=== PATIENT | male | born 1965 | race Caucasian/White ===

== ENCOUNTER 2017-10-06 22:33 | Observation (INO) ==
[2017-10-06] MEDS ORDERED: Aspirin 81 MG TAB.CHEW PO ONE (22:46)
--- NOTE | 2017-10-06 22:50 | Emergency Department Note ---
Disposition Clinical Impression: Chest pain Qualifiers: Chest pain type: unspecified Qualified Code(s): R07.9 - Chest pain, unspecified Disposition: Admitted As Inpatient Condition: Good General Adult HPI - General Stated complaint: Cp,pain down L arm Time Seen by Provider: 10/06/17 22:38 Source: patient Limitations: no limitations Nursing Notes Reviewed: Yes Vital Signs Reviewed: Yes - History of Present Illness HPI Narrative: Patient presents for evaluation of chest pain started 2 hours prior to arrival. Patient describes a tightness in his chest. Associated shortness of breath diaphoresis and left arm pain. Patient states nothing has made his symptoms better or worse. Prolonged nature of his chest pain as well but him for evaluation. Patient has had a negative stress test in the past but no cardiac catheterization. Patient's father had an NC in his 60s. His sisters had heart problems in her 50s. Patient did not have any treatment prior to arrival. Aspirin and nitroglycerin will be given. Pain Scale: 7 - Related Data Home Medications Medication Instructions Recorded Confirmed Levothyroxine [Synthroid] 100 mcg PO 0630 09/26/15 10/15/15 Omeprazole [PriLOSEC] 1 cap PO DAILY 09/26/15 10/15/15 Previous Rx's Medication Instructions Recorded Aspirin 81 mg PO DAILY tab.chew 09/27/15 Atorvastatin [Lipitor] 40 mg PO HS #30 tablet 09/27/15 Lisinopril-HCTZ 10-12.5 [Prinzide 1 each PO DAILY #30 tablet 09/27/15 10-12.5] Ondansetron [Zofran] 8 mg PO Q8HR #60 tablet 10/15/15 Allergies Allergy/AdvReac Type Severity Reaction Status Date / Time Oxytetracycline Allergy Swelling Verified 10/06/17 22:37 [From Terramycin] of Lip/Tongue/Throat All systems ED: reviewed and negative except as stated. Review of Systems: As Per HPI Constitutional: Denies: fever, chills, weakness Cardiovascular: Reports: chest pain (Radiation of pain to the left arm), other ( Diaphoresis) Gastrointestinal: Reports: nausea Genitourinary: Denies: dysuria Integumentary: Denies: rash, abrasion, lesions Neurological: Denies: headache, weakness, numbness, paresthesias Psychiatric: Denies: anxiety, depression Endocrine: Denies: fatigue Past Medical History - Past Medical History Medical history: Reports: arthritis, diabetes, GERD, hyperlipidemia, hypertension, thyroid disease, other Surgical history: Reports: other (Colonoscopy) Psychiatric history: Reports: anxiety - Social History Smoking Status: Never smoker Smokeless Tobacco Status: No Alcohol use: Reports: rarely Drug use: Reports: none Physical Exam General: Well appearing, nontoxic, no acute distress Head: Normocephalic Atraumatic Eyes: PERRL, EOMI ENT: Airway patent, no stridor Neck: supple, no meningismus Chest: Lungs clear to auscultation bilateral Cardiac: Regular rate and rhythm, no murmurs, rubs or gallops Abdomen: soft, nontender, nondistended; no guarding, rebound, or tenderness to percussion Musculoskeletal: Calves symmetric, nontender, no palpable cord Skin: No rash, normal skin tone Neuro: Alert and Oriented to person, place, and time; No focal deficit, CN 2-12 symmetric and intact - General Limitations: no limitations General appearance: alert, in no apparent distress Course - Consultations Consultation #1: Discussed with Dr. Paiz. Pt accepted for admission. Vital Signs Temperature 99.0 F 10/06/17 22:38 Pulse Rate 89 10/06/17 22:38 Respiratory Rate 16 10/06/17 22:38 Blood Pressure 136/93 10/06/17 22:38 O2 Sat by Pulse Oximetry 96 10/06/17 22:38 Temperature 97.9 F 10/07/17 03:10 Pulse Rate 72 10/07/17 03:10 Respiratory Rate 14 10/07/17 03:10 Blood Pressure 117/71 10/07/17 03:10 O2 Sat by Pulse Oximetry 93 10/07/17 03:10 Oxygen Delivery Oxygen Delivery Room Air Medical Decision Making - Medical Records Medical records reviewed: Yes I reviewed the patient's medical records. - Lab Data Lab results reviewed: Yes I reviewed the patient's lab results. Result diagrams: 10/06/17 22:46 10/07/17 01:07 Lab Results 10/06/17 10/06/17 10/06/17 Range/Units 22:46 22:46 22:46 WBC 8.4 (4.3-11.1) K/mcL RBC 5.25 (4.19-5.50) M/mcL Hgb 15.6 (12.9-16.9) g/dL Hct 46.2 (37.5-50.1) % MCV 88.0 (83.0-100.0) fL MCH 29.7 (28.0-33.3) pg MCHC 33.8 (31.6-35.5) g/dL RDW 12.5 (11.5-14.5) % Plt Count 229 (140-400) K/mcL MPV 9.2 L (9.4-12.4) fL Immature Gran % 0.1 (0-4) % Seg Neutrophils % 53.5 % Lymphocytes % 36.8 % Monocytes % 7.3 % Eosinophils % 1.8 % Basophils % 0.5 % Neutrophils # 4.5 (1.6-8.9) K/mcL Lymphocytes # 3.1 (0.6-4.6) K/mcL Monocytes # 0.6 (0.0-1.3) K/mcL Eosinophils # 0.2 (0.0-0.6) K/mcL Basophils # 0.0 (0.0-0.2) K/mcL PT 11.4 (9.4-12.1) Seconds INR 1.1 APTT 32.1 (26.0-36.0) Seconds Sodium 141 (136-145) mEq/L Potassium 3.8 (3.5-4.5) mEq/L Chloride 105 (98-109) mEq/L Carbon Dioxide 26 (19-29) mEq/L BUN 20 (8-26) mg/dL Creatinine 1.40 H (0.72-1.25) mg/dL Est GFR ( Amer) > 60 (> 60) Est GFR (Non-Af Amer) 53 L (> 60) BUN/Creatinine Ratio 14 (6-26) Glucose 107 H (70-99) mg/dL Calculated Osmolality 295 (280-300) Calcium 9.7 (8.6-10.8) mg/dL Troponin I (0-0.03) ng/mL 10/06/17 Range/Units 22:46 WBC (4.3-11.1) K/mcL RBC (4.19-5.50) M/mcL Hgb (12.9-16.9) g/dL Hct (37.5-50.1) % MCV (83.0-100.0) fL MCH (28.0-33.3) pg MCHC (31.6-35.5) g/dL RDW (11.5-14.5) % Plt Count (140-400) K/mcL MPV (9.4-12.4) fL Immature Gran % (0-4) % Seg Neutrophils % % Lymphocytes % % Monocytes % % Eosinophils % % Basophils % % Neutrophils # (1.6-8.9) K/mcL Lymphocytes # (0.6-4.6) K/mcL Monocytes # (0.0-1.3) K/mcL Eosinophils # (0.0-0.6) K/mcL Basophils # (0.0-0.2) K/mcL PT (9.4-12.1) Seconds INR APTT (26.0-36.0) Seconds Sodium (136-145) mEq/L Potassium (3.5-4.5) mEq/L Chloride (98-109) mEq/L Carbon Dioxide (19-29) mEq/L BUN (8-26) mg/dL Creatinine (0.72-1.25) mg/dL Est GFR ( Amer) (> 60) Est GFR (Non-Af Amer) (> 60) BUN/Creatinine Ratio (6-26) Glucose (70-99) mg/dL Calculated Osmolality (280-300) Calcium (8.6-10.8) mg/dL Troponin I 0.00 (0-0.03) ng/mL - Radiology Data Radiology results reviewed: Yes I reviewed the patient's radiology results. - EKG Data EKG #1 EKG attestation: Yes I reviewed and interpreted this EKG. EKG results narrative: EKG shows sinus rhythm with a ventricular rate of 83. [place] interval 128. QRS 88. QTC 390. Patient has no significant ST elevations or depressions. Patient 's EKG compared to previous of 11/22/16. Inferior leads with abnormal baseline and unable to compare. Patient has T-wave inversions in 3 today aVF is unreadable. Attestation Statement - Attestation Attestation: I, Brando Dennis MD, personally evaluated this patient and discussed their management with the resident physician. I reviewed the resident's note and agree with the documented findings, medical decision making, and plan of care. 52-year-old male presents to the emergency department with a complaint of left- sided chest pain which started about 2 hours prior to arrival. Describes the pain as a dull aching pain with radiation to the left shoulder and down the left arm. Also radiation to the left jaw. He also complains of shortness of breath associated with the pain. No diaphoresis. No nausea or vomiting. No cough or fever. No history of heart problems. He does have a history of hypertension and hyperlipidemia with borderline diabetes. Patient rated the pain a 7 out of 10. Pain not associated with exertion. On examination patient is a well-developed well-nourished well-appearing male in no acute distress. He is alert and oriented 3. There is no cyanosis or diaphoresis. Chest is nontender to palpation. Breath sounds are clear and equal bilaterally. Heart regular rate and rhythm. Abdomen soft and nontender with normal bowel sounds. No pedal edema noted. No gross focal neurological deficits. EKG shows a normal sinus rhythm with no acute ischemic changes. Chest x-ray negative. Labs reviewed. Troponin normal. The hospitalist, Dr. Paiz, was consulted and accepted admission of the patient.
[2017-10-06 22:57] LABS: Basophils % 0.5 %; Eosinophils # 0.2 K/mcL (0.0-0.6); Eosinophils % 1.8 %; Hematocrit 46.2 % (37.5-50.1); Hemoglobin 15.6 g/dL (12.9-16.9); Immature Granulocytes % 0.1 % (0-4); Lymphocytes # 3.1 K/mcL (0.6-4.6); Lymphocytes % 36.8 %; Mean Corpuscular HGB Conc 33.8 g/dL (31.6-35.5); Mean Corpuscular Hemoglobin 29.7 pg (28.0-33.3); Mean Platelet Volume 9.2 fL (9.4-12.4); Monocytes # 0.6 K/mcL (0.0-1.3); Monocytes % 7.3 %; Neutrophils # 4.5 K/mcL (1.6-8.9); Platelet Count 229 K/mcL (140-400); Red Blood Count 5.25 M/mcL (4.19-5.50); Red Cell Distribution Width 12.5 % (11.5-14.5); Segmented Neutrophils % 53.5 %
[2017-10-06] MEDS: Nitroglycerin 0.4 MG TAB.SUBL SL ONE ×3 (22:57→23:20)
[2017-10-06 23:02] LABS: INR 1.1; Prothrombin Time 11.4 Seconds (9.4-12.1)
[2017-10-06 23:04] LABS: Activated Partial Thrombo Time 32.1 Seconds (26.0-36.0); BUN/Creatinine Ratio 14 (6-26); Blood Urea Nitrogen 20 mg/dL (8-26); Calcium 9.7 mg/dL (8.6-10.8); Carbon Dioxide 26 mEq/L (19-29); Chloride 105 mEq/L (98-109); Glucose 107 mg/dL (70-99); Osmolality,Calculated 295 (280-300); Potassium 3.8 mEq/L (3.5-4.5); Sodium 141 mEq/L (136-145); eGFR For African Americans > 60 (> 60); eGFR For Non-African Americans 53 (> 60)
[2017-10-06] MEDS ORDERED: Nitroglycerin 1 INCH/GM PACKET TP ONE (23:41)
[2017-10-07] MEDS ORDERED: Acetaminophen 325 MG TABLET PO PRN (00:46)
[2017-10-07] MEDS ORDERED: Ondansetron 4 MG/2 ML VIAL IVP PRN (00:46)
[2017-10-07] MEDS ORDERED: *HR* Morphine 2 MG/ML SYRINGE IVP PRN (00:46)
[2017-10-07] MEDS ORDERED: Naloxone 0.4 MG/ML INJ IVP PRN (00:46)
--- NOTE | 2017-10-07 00:53 | Internal Med History&Physical ---
Date of Encounter: 10/07/17 Time of Encounter: 00:30 Assessment and Plan (1) Chest pain Current visit: Yes Status: Acute Atypical chest pain - rule out ACS Continue Aspirin, Lipitor, Nitro paste, IV Morphine PRN Chest x-ray - no acute cardiopulmonary abnormality EKG - sinus rhythm with no acute ST-T changes Troponin - 0.01, cycle troponin BNP < 10 Lipid panel - pending Echocardiogram - pending Stress test - pending Cardiac telemetry, labs in a.m., monitor closely Qualifiers: Chest pain type: unspecified Qualified Code(s): R07.9 - Chest pain, unspecified (2) Hypertension Current visit: Yes Status: Chronic Essential hypertension, controlled, monitor Continue home dose of Lisinopril/HCTZ Qualifiers: Hypertension type: essential hypertension Qualified Code(s): I10 - Essential (primary) hypertension (3) Dyslipidemia Current visit: Yes Status: Chronic Continue home dose of Lipitor (4) DVT prophylaxis Current visit: Yes Status: Acute Heparin subcutaneous Internal Medicine - H&P: HPI Chief complaint: Chest pain Admitted From: Emergency Dept Plans for Post Hospital Care: Home History of present illness: Mr. Brush is a 52 year old male with past medical history hypertension, hypothyroidism, hyperlipidemia and GERD. Patient presents to the ED with complaints of chest pain. Examined in the room. Patient is awake and alert. Not in any distress. Able to provide all history. No family members at bedside. Patient states he developed chest pain around 8 PM this evening. States that this is left-sided chest pain. Describes it as chest tightness and pressure. Radiates to his left arm and neck. Rates it 6/10. Associated with diaphoresis and shortness of breath. Denies palpitations or headache or dizziness. No vomiting or abdominal pain or diarrhea. Denies fever. Patient states he was at home alone when symptoms started. Patient does have family history of coronary artery disease. No other associated symptoms. No other acute complaints. Initial workup in the ED is negative. Chest x-ray is negative. EKG shows normal sinus rhythm. Troponin is within normal limits. Patient will need echocardiogram and stress test. Patient has been explained about his condition and plan of care in detail. He understood and agreed. No unanswered questions. CODE STATUS full code. Past Med Surg Social Fam HX - Past Medical History Medical history: arthritis, diabetes, GERD, hyperlipidemia, hypertension, thyroid disease, other Psychiatric history: anxiety - Past Surgical History Surgical History: other (Colonoscopy) - Social History Smoking Status: Never smoker Smokeless Tobacco Status: No Alcohol use: rarely Drug use: none - Family History Father Adopted: No Hx Family Cardiac Disorders: Yes (Heart Attack) Hx Family Respiratory Disorders: Yes (COPD) Hx Family Cancer: Yes (Bladder) Internal Medicine - H&P: Meds Levothyroxine [Synthroid] 100 mcg PO 0630 09/26/15 [History] Omeprazole [PriLOSEC] 1 cap PO DAILY 09/26/15 [History] Aspirin 81 mg PO DAILY tab.chew 09/27/15 [Rx] Atorvastatin [Lipitor] 40 mg PO HS #30 tablet 09/27/15 [Rx] Lisinopril-HCTZ 10-12.5 [Prinzide 10-12.5] 1 each PO DAILY #30 tablet 09/27/15 [ Rx] Ondansetron [Zofran] 8 mg PO Q8HR #60 tablet 10/15/15 [Rx] 3 Allergy/AdvReac Type Severity Reaction Status Date / Time Oxytetracycline Allergy Swelling Verified 10/06/17 22:37 [From Terramycin] of Lip/Tongue/Throat All Systems PM: A 10-system review of systems was performed and is negative for pertinent findings except as documented above in the HPI. - Constitutional Constitutional: no fatigue, no fever(s), no weakness - EENT Eyes: no blurry vision - Cardiovascular Cardiovascular ROS IM: chest pain, diaphoresis, dyspnea, no dyspnea on exertion , no edema, no lightheadedness, no orthopnea, no palpitations, no syncope - Respiratory Respiratory: dyspnea, no cough, no dyspnea on exertion, no wheezing, no chest congestion - Gastrointestinal Gastrointestinal: no abdominal pain, no bloating, no cramping, no diarrhea, no hematochezia, no loose stools, no melena, no nausea, no vomiting - Genitourinary Genitourinary ROS male: no dysuria - Neurological Neurological ROS: no abnormal gait, no confusion, no convulsions, no dizziness, no loss of vision, no numbness, no tingling - Constitutional Vitals: Temp Pulse Resp BP Pulse Ox 97.7 F 82 20 106/84 96 10/07/17 00:42 10/07/17 00:42 10/07/17 00:51 10/07/17 00:51 10/07/17 00:42 General appearance: Present: cooperative, A&O X 3, pleasant, no acute distress, answers questions appropriately - Head Head exam: Present: atraumatic - Eye Eye exam: Present: EOMI - ENT ENT exam: Present: mucous membranes moist - Respiratory Respiratory exam: Present: CTAB. Absent: accessory muscle use, chest wall tenderness, rales, respiratory distress, rhonchi, wheezes, tachypnea - Cardiovascular Cardiovascular exam: Present: RRR, +S1, +S2 - GI/Abdominal GI/Abdominal exam: Present: soft. Absent: distended, firm, guarding, tenderness - Extremities Exam Extremities exam: Present: radial pulses palpable and symmetrical. Absent: calf tenderness, cyanotic, pedal edema - Neurological Exam Neurological exam: Present: alert, oriented X3, no focal deficits. Absent: facial droop, speech deficit Internal Med - H&P Results - Labs CBC & Chem 7: 10/06/17 22:46 10/07/17 01:07
[2017-10-07] MEDS: 0.9 % Sodium Chloride 1,000 ML IVC SCH ×2 (01:12→20:27)
[2017-10-07 01:20] LABS: INR 1.1
[2017-10-07 01:30] LABS: BUN/Creatinine Ratio 14 (6-26); Blood Urea Nitrogen 18 mg/dL (8-26); Calcium 9.5 mg/dL (8.6-10.8); Carbon Dioxide 27 mEq/L (19-29); Chloride 106 mEq/L (98-109); Chol/HDL Ratio 4.2 (0-4.9); Cholesterol 147 mg/dL (< 200); Glucose 100 mg/dL (70-99); HDL Cholesterol 35 mg/dL (40-59); LDL Cholesterol,Calculated 66 mg/dL (0-99); Osmolality,Calculated 292 (280-300); Potassium 3.5 mEq/L (3.5-4.5); Sodium 140 mEq/L (136-145); Triglycerides 229 mg/dL (< 150); eGFR For African Americans > 60 (> 60); eGFR For Non-African Americans 59 (> 60)
[2017-10-07 02:10] LABS: Thyroid Stimulating Hormone 1.259 mcIU/mL (0.350-4.840)
[2017-10-07] MEDS: *HR* Heparin 5,000 UNIT/ML VIAL SQ SCH ×2 (05:32→17:28)
[2017-10-07] MEDS: Famotidine 20 MG TABLET PO SCH ×2 (10:18→20:14)
[2017-10-07] MEDS: clonazePAM 1 MG TABLET PO SCH ×2 (10:18→20:14)
[2017-10-07] MEDS: Aspirin 81 MG TAB.CHEW PO SCH (10:19)
--- NOTE | 2017-10-07 12:47 | Internal Med Progress Note ---
Date of Encounter: 10/07/17 Time of Encounter: 09:10 - Assessment and plan (1) Chest pain Current Visit: Yes Status: Acute Assessment and plan: Patient reports atypical chest pain. He was admitted to rule out ACS. He was diagnosed with stable angina at that time per his history. He reports left- sided chest pain with radiation to left arm and neck. Onset around 8 PM the night of admission. He describes it as a chest tightness and has associated diaphoresis and shortness of breath. He denies nausea or vomiting. She has history of previous symptoms in the past and per his history, he was diagnosed with angina. The last cardiac workup was in August 2015. Echo showed preserved ejection fraction with mild LVDD and no significant valvular dysfunction. At that time stress test was negative with a gated EF is 71%. Currently troponins are negative. Chest x-ray was negative. Stress test will be performed tomorrow. Echocardiogram was completed today, and has not been read at this time. Continue telemetry Continue aspirin, statin Morphine, nitroglycerin for chest pain Continue to monitor labs and vitals Qualifiers: Chest pain type: unspecified Qualified Code(s): R07.9 - Chest pain, unspecified (2) Hypertension Current Visit: Yes Status: Chronic Assessment and plan: Blood pressure is well controlled. Patient takes Zestoretic at home. Continue. Qualifiers: Hypertension type: essential hypertension Qualified Code(s): I10 - Essential (primary) hypertension (3) Dyslipidemia Current Visit: Yes Status: Chronic Assessment and plan: Continue lovastatin. (4) DVT prophylaxis Current Visit: Yes Status: Acute Assessment and plan: Heparin subcutaneously. Patient is ambulatory. - Time Spent With Patient less than 15 minutes - Subjective Interval history: Patient was seen and assessed at bedside at 9:10 AM. Patient states that he is feeling some better and chest pain is improved. He reports left-sided chest pain describes it as a tightness. He denies any cough or congestion any recent sick contacts. Patient is a nonsmoker. Patient has history of same symptoms in the past, he was diagnosed that time was stable and angina. His last echo and stress test or an August,. He denies headache, blurred vision, dizziness, syncope or near-syncopal. He denies shortness of breath, nausea vomiting or diaphoresis, he denies diarrhea or constipation or abdominal pain. He denies fever or chills. Patient is aware the stress test will not be until tomorrow. All questions have been answered. - Constitutional Vitals: Temp Pulse Resp BP Pulse Ox 98.5 F 74 16 114/76 95 10/07/17 11:44 10/07/17 11:44 10/07/17 11:44 10/07/17 11:44 10/07/17 11:44 General appearance: Present: cooperative, A&O X 3, pleasant, no acute distress, answers questions appropriately - Head Head exam: Present: atraumatic, normal inspection, normocephalic - Eye Eye exam: Present: normal appearance, conjuntiva pink, sclera anicteric - Neck Neck exam general surgery: Present: supple, trachea midline. Absent: lymphadenopathy, tenderness - Respiratory Respiratory exam: Present: CTAB. Absent: accessory muscle use, chest wall tenderness, decreased breath sounds, rales, respiratory distress, rhonchi, wheezes - Cardiovascular Cardiovascular exam: Present: RRR, +S1, +S2. Absent: diastolic murmur, gallop, rubs, systolic murmur - GI/Abdominal GI/Abdominal exam: Present: normal bowel sounds, soft. Absent: distended, hernia, hepatomegaly, tenderness - Extremities Exam Extremities exam: Present: normal capillary refill, normal inspection, warm, radial pulses palpable and symmetrical. Absent: calf tenderness, cyanotic, pedal edema, tenderness - Neurological Exam Neurological exam: Present: alert, oriented X3, no focal deficits. Absent: facial droop, speech deficit - Skin Skin exam: Present: dry, intact, normal color, warm. Absent: rash Internal Medicine: Result - Labs CBC & Chem 7: 10/06/17 22:46 10/07/17 01:07 Labs: BMP 10/07/17 01:07 Sodium 140 Potassium 3.5 Chloride 106 Carbon Dioxide 27 BUN 18 Creatinine 1.27 H Glucose 100 H Calcium 9.5 Cardiac Enzymes 10/07/17 10/07/17 Range/Units 01:07 06:48 Troponin I 0.01 0.01 (0-0.03) ng/mL - ABG Interpretation ABG results: PT/INR, D-dimer PT 12.0 Seconds (9.4-12.1) 10/07/17 01:07 Consult Discharge Plan - Plan Referrals: Christi Prabhakar MD [Primary Care Provider] -
[2017-10-08] MEDS: *HR* Heparin 5,000 UNIT/ML VIAL SQ SCH (06:15)
[2017-10-08] MEDS ORDERED: Regadenoson 0.4 MG/5 ML SYRINGE IVP ONE (06:38)
[2017-10-08] MEDS: Aspirin 81 MG TAB.CHEW PO SCH (10:30)
[2017-10-08] MEDS: clonazePAM 1 MG TABLET PO SCH (10:30)
[2017-10-08] MEDS: Famotidine 20 MG TABLET PO SCH (10:30)
[2017-10-08 11:36] VITALS: BP 134/85
--- NOTE | 2017-10-08 14:39 | Discharge Summary ---
Date of Encounter: 10/08/17 Time of Encounter: 09:30 - Discharge Diagnosis (1) Chest pain Priority: Primary Status: Acute Comments: Patient reports atypical chest pain. He was admitted to rule out ACS. He was diagnosed with stable angina at that time per his history. He reports left- sided chest pain with radiation to left arm and neck. Onset around 8 PM the night of admission. He describes it as a chest tightness and has associated diaphoresis and shortness of breath. He denies nausea or vomiting. She has history of previous symptoms in the past and per his history, he was diagnosed with angina. The last cardiac workup was in August 2015. Echo showed preserved ejection fraction with mild LVDD and no significant valvular dysfunction. At that time stress test was negative with a gated EF is 71%. Currently troponins are negative. Chest x-ray was negative. Stress test negative, gated EF > 70%.. Echocardiogram was completed today, and has not been read at this time. I believe that chest pain is noncardiac, more related to stress and anxiety. Patient reports PTSD and sees mental health providers for anxiety and depression. He states that he has recently started Prozac, did not continue it here because he forgot about it. Patient reports that for 15 years he has had vomiting with stress, either emotional or physical. He reports emesis for 365 days straight. Patient states that he will continue to follow-up with mental health, as well as his primary care provider. Continue aspirin, statin Qualifiers: Chest pain type: unspecified Qualified Code(s): R07.9 - Chest pain, unspecified (2) Hypertension Priority: Secondary Status: Chronic Comments: Blood pressure is well controlled. Patient takes Zestoretic at home. Continue after discharge. Qualifiers: Hypertension type: essential hypertension Qualified Code(s): I10 - Essential (primary) hypertension (3) Dyslipidemia Priority: Secondary Status: Chronic Comments: Chronic. Continue lovastatin. (4) DVT prophylaxis Priority: Secondary Status: Acute Comments: Heparin subcutaneous. Patient has been ambulatory. - Discharge Medications Home Medications: Levothyroxine [Synthroid] 100 mcg PO DAILY 09/26/15 [History] Omeprazole [PriLOSEC] 1 cap PO DAILY 09/26/15 [History] Aspirin 81 mg PO DAILY tab.chew 09/27/15 [Rx] BuPROPion XL (24 HR) [Wellbutrin Xl] 450 mg PO DAILY 12/10/17 [History] FLUoxetine HCl [Prozac] 20 mg PO DAILY 10/07/17 [History] Lisinopril/Hydrochlorothiazide [Zestoretic 10-12.5 mg Tablet] 1 tab PO DAILY 08/14 [History] Lovastatin [Mevacor] 20 mg PO DAILY 10/07/17 [History] Pantoprazole Sodium 40 mg PO BID 10/07/17 [History] Testosterone [Testim] 1 appl TP AD 10/07/17 [History] Venlafaxine XR (24 HR) [Effexor XR] 75 mg PO DAILY 10/07/17 [History] clonazePAM [Klonopin] 1 mg PO BID 10/07/17 [History] Allergies/Adverse Reactions: 3 Allergy/AdvReac Type Severity Reaction Status Date / Time Oxytetracycline Allergy Swelling Verified 10/06/17 22:37 [From Terramycin] of Lip/Tongue/Throat acetaminophen [From Vicodin] AdvReac Gastrointestinal Verified 10/07/17 11:12 Upset escitalopram [From Lexapro] AdvReac Palpitation Verified 10/07/17 11:12 s hydrocodone [From Vicodin] AdvReac Gastrointestinal Verified 10/07/17 11:12 Upset Procedures/tests Complete & Pending: Procedures Performed prior 72 hours Category Date Time Status NM simba perf SPECT multi [NM] Routine Exams 10/08/17 06:00 Taken ECG 12 lead ECG [ECG] AM 0600 Y 10/07/17 06:00 Ordered EV echocardiogram Routine Y 10/07/17 00:51 Completed SP exercise nuclear stress Routine Y 10/07/17 00:51 Completed SP exercise nuclear stress Routine Y 10/08/17 08:11 Completed Date of admission: 10/07/17 00:20 Primary care physician: Christi Prabhakar, Discharging clinician: Kim Ramos Anticipated date of discharge: 10/08/17 - Patient Status Disposition: Home, Self-Care Condition: Good Functional capacity at discharge: independent ambulation Overall status at discharge: patient is back to baseline - Discharge Instructions Follow Up With: Christi Prabhakar MD [Primary Care Provider] - Forms: ED Satisfaction Letter Additional Instructions: Please resume her Prozac. Please resume all other home medications. Please follow-up with your primary care provider in the next 7-10 days for recheck. Return to the emergency department as needed for any other problems or concerns , or if symptoms return or worsen. Please return to normal activities and diet as tolerated - Diet and Activity Activity: increase activity as tolerated Diet: advance to your usual diet Hospital course: Mr. Brush is a 52 year old male with past medical history of dyslipidemia, hypertension, PTSD, anxiety and depression. He reported with chest pain. He has had no chest pain since arrival. He was held over for an extra day due to not having stress tests available on Sunday. All testing was negative. He denies chest pain he is stable and appropriate for discharge. Please see assessment and plan for hospital course. - Time Spent with Patient Total time spent providing and/or coordinating discharge services: Less than 30 minutes - Constitutional Vitals: Temp Pulse Resp BP Pulse Ox 98.2 F 78 17 134/85 96 10/08/17 11:36 10/08/17 11:36 10/08/17 11:36 10/08/17 11:36 10/08/17 11:36 General appearance: Present: cooperative, A&O X 3, pleasant, no acute distress, answers questions appropriately - Head Head exam: Present: atraumatic, normal inspection, normocephalic - Eye Eye exam: Present: normal appearance, conjuntiva pink, sclera anicteric - Neck Neck exam general surgery: Present: supple, trachea midline. Absent: lymphadenopathy, tenderness - Respiratory Respiratory exam: Present: CTAB. Absent: accessory muscle use, chest wall tenderness, decreased breath sounds, rales, respiratory distress, rhonchi, wheezes - Cardiovascular Cardiovascular exam: Present: RRR, +S1, +S2. Absent: diastolic murmur, gallop, rubs, systolic murmur - GI/Abdominal GI/Abdominal exam: Present: normal bowel sounds, soft, no peritoneal signs. Absent: distended, hepatomegaly, tenderness - Extremities Exam Extremities exam: Present: normal capillary refill, normal inspection, warm, radial pulses palpable and symmetrical. Absent: calf tenderness, cyanotic, pedal edema, tenderness - Neurological Exam Neurological exam: Present: alert, oriented X3, no focal deficits. Absent: facial droop, speech deficit - Skin Skin exam: Present: dry, intact, normal color, warm. Absent: rash
--- NOTE | 2017-10-08 15:06 | Electrocardiograph Report ---
[address] [place], [place] [address] Test Date: 2017-10-06 Pat Name: Cheko Brush Department: 104 Room: 3B Gender: M [employer]ator: LYNDON : 1965 Requested By: Jesse Ty Order Number: [id number] Reading MD: Sha Wang Measurements Intervals [place] Rate: 83 P: -1 RI: 128 QRS: 5 QRSD: 88 T: 7 QT: 350 QTc: 390 Interpretive Statements SINUS RHYTHM Electronically Signed On 10-08-2017 15:04:32 EST by Sha Wang
== END 2017-10-08 16:03 | disposition home or self-care (01) ==
LOC: 3BNU 22:33 → EMEROO 22:33 → 3BNU 10-07 00:35
PROVIDERS: ADMIT Family Medicine; ATTEND Registered Nurse

== ENCOUNTER 2019-07-07 20:43 | Observation (INO) ==
--- NOTE | 2019-07-07 20:51 | Emergency Department Note ---
Disposition Clinical Impression: Chest pain Qualifiers: Chest pain type: unspecified Qualified Code(s): R07.9 - Chest pain, unspecified Disposition: Admitted As Inpatient Condition: Fair Referrals: Keshawn Vance MD [Primary Care Provider] - Time of Disposition: 22:25 General Adult HPI - General Stated complaint: CP Time Seen by Provider: 07/07/19 20:49 Nursing Notes Reviewed: Yes Vital Signs Reviewed: Yes - History of Present Illness HPI Narrative: Patient to the ED complaint chest pain. Patient describes a sharp left-sided chest pain. It radiates down his left arm and left side of his jaw. Woke him up from sleep around 7 PM. No prior cardiac history. He has had a prior stress test that was negative. He does have hypertension and "prediabetes". Family history of coronary disease. Patient states he took a Klonopin prior to arrival but it did not help much. - Related Data Home Medications Medication Instructions Recorded Confirmed Levothyroxine Sodium 125 mcg PO DAILY 12/25/18 12/25/18 Lisinopril/Hydrochlorothiazide 1 tab PO DAILY 12/25/18 12/25/18 [Zestoretic 10-12.5 mg Tablet] Pantoprazole Sodium 40 mg PO BID 12/25/18 12/25/18 Sertraline [Zoloft] 50 mg PO DAILY 12/25/18 12/25/18 clonazePAM [Clonazepam] 1 mg PO BID PRN 12/25/18 12/25/18 Allergies Allergy/AdvReac Type Severity Reaction Status Date / Time oxytetracycline Allergy Swelling Verified 12/25/18 10:34 [From Terramycin] of Lip/Tongue/Throat escitalopram [From Lexapro] AdvReac Palpitation Verified 12/25/18 10:34 s hydrocodone [From Vicodin] AdvReac Gastrointestinal Verified 12/25/18 10:34 Upset All systems ED: reviewed and negative except as stated. Constitutional: Denies: fever Cardiovascular: Reports: chest pain. Denies: palpitations Respiratory: Denies: dyspnea Gastrointestinal: Reports: nausea. Denies: vomiting, diarrhea Past Medical History - Past Medical History Attestation: Yes The following information was validated with the patient. Source: patient Medical history: Reports: arthritis, diabetes, GERD, hyperlipidemia, hypertension, migraine, thyroid disease, other Surgical history: Reports: other Psychiatric history: Reports: anxiety, depression - Social History Smoking Status: Never smoker Smokeless Tobacco Status: No Alcohol use: Reports: rarely Drug use: Reports: none Physical Exam Patient awake and alert sitting up in bed in no acute distress. - General Limitations: no limitations - Head Head exam: atraumatic, normocephalic - Eye Eye exam: Present: normal appearance - Neck Neck exam: Present: normal inspection - Chest Chest inspection: Present: normal inspection, symmetric chest wall rise - Respiratory Respiratory exam: Present: normal lung sounds bilaterally. Absent: respiratory distress - Cardiovascular Cardiovascular exam: Present: regular rate, normal rhythm - Abdominal Exam Abdominal exam: Present: soft, Non-Tender - Expanded Neurological Exam Patient oriented to: Present: person, place, time - Psychiatric Psychiatric exam: Present: normal affect - Skin Skin exam: Present: warm, dry Course - Reevaluation(s) Reevaluation #1: Patient is reevaluated and he feels much better at this time. We did discuss admission versus discharge after repeat troponin. Patient mentions now that he had an episode a couple weeks ago he was riding his bike heart at the [employer] experience some left-sided chest pain down his left arm as well. It is been a year since his last stress test. Believe this time the patient should be admitted for further cardiac workup. Patient hospitalist. Blood pressure is improved to 122/80 on reevaluation. Time: 22:24 - Consultations Consultation #1: Dr Sanchez accepts. Time: 22:41 Vital Signs Temperature 97.9 F 07/07/19 20:48 Pulse Rate 82 07/07/19 20:48 Respiratory Rate 20 07/07/19 20:48 Blood Pressure 172/121 07/07/19 20:48 O2 Sat by Pulse Oximetry 99 07/07/19 20:48 Temperature 97.9 F 07/07/19 20:48 Pulse Rate 75 07/07/19 21:53 Respiratory Rate 16 07/07/19 21:53 Blood Pressure 140/92 07/07/19 21:53 O2 Sat by Pulse Oximetry 96 07/07/19 21:53 Oxygen Delivery Oxygen Delivery Room Air Medical Decision Making - Lab Data Lab results reviewed: Yes I reviewed the patient's lab results. Result diagrams: 07/07/19 20:54 07/07/19 20:54 Lab Results 07/07/19 07/07/19 Range/Units 20:54 20:54 WBC 8.6 (4.3-11.1) K/mcL RBC 5.21 (4.19-5.50) M/mcL Hgb 15.7 (12.9-16.9) g/dL Hct 47.4 (37.5-50.1) % MCV 91.0 (83.0-100.0) fL MCH 30.1 (28.0-33.3) pg MCHC 33.1 (31.6-35.5) g/dL RDW 12.5 (11.5-14.5) % Plt Count 218 (140-400) K/mcL MPV 9.1 L (9.4-12.4) fL Immature Gran % 0.2 (0-4) % Seg Neutrophils % 45.1 % Lymphocytes % 40.6 % Monocytes % 8.6 % Eosinophils % 4.8 % Basophils % 0.7 % Neutrophils # 3.9 (1.6-8.9) K/mcL Lymphocytes # 3.5 (0.6-4.6) K/mcL Monocytes # 0.7 (0.0-1.3) K/mcL Eosinophils # 0.4 (0.0-0.6) K/mcL Basophils # 0.1 (0.0-0.2) K/mcL Sodium 140 (136-145) mEq/L Potassium 3.6 (3.5-5.1) mEq/L Chloride 102 (98-107) mEq/L Carbon Dioxide 28 (23-29) mEq/L BUN 16 (6-20) mg/dL Creatinine 1.29 (0.70-1.30) mg/dL Est GFR ( Amer) > 60 (> 60) Est GFR (Non-Af Amer) 58 L (> 60) BUN/Creatinine Ratio 12 (6-26) Glucose 124 H (70-105) mg/dL Calculated Osmolality 293 (280-300) Calcium 9.6 (8.6-10.3) mg/dL Troponin I < 0.03 (< 0.04) ng/mL - Radiology Data Radiology results reviewed: Yes I reviewed the patient's radiology results. - EKG Data EKG #1 EKG attestation: Yes I reviewed and interpreted this EKG. EKG results narrative: EKG is normal sinus rhythm at 84. Nonspecific ST changes in inferior leads are unchanged from prior EKG. Normal axis. Normal QRS. Critical Care Time Critical Care Time: No Heart Score - Score History: Moderately Suspicious EKG: Non Specific repolarisation Disturbance Age: 45-65 Risk Factors: Equal/Greater than 3 risk factor or history of atherosclerotic disease Troponin: Less than normal limit HEART Score Total: 5
[2019-07-07] MEDS ORDERED: Aspirin 81 MG TAB.CHEW PO ONE (20:55)
[2019-07-07] MEDS ORDERED: *HR* LORazepam 2 MG/ML VIAL IVP ONE (21:02)
[2019-07-07 21:12] LABS: Basophils # 0.1 K/mcL (0.0-0.2); Basophils % 0.7 %; Eosinophils # 0.4 K/mcL (0.0-0.6); Eosinophils % 4.8 %; Hematocrit 47.4 % (37.5-50.1); Hemoglobin 15.7 g/dL (12.9-16.9); Immature Granulocytes % 0.2 % (0-4); Lymphocytes # 3.5 K/mcL (0.6-4.6); Lymphocytes % 40.6 %; Mean Corpuscular HGB Conc 33.1 g/dL (31.6-35.5); Mean Corpuscular Hemoglobin 30.1 pg (28.0-33.3); Mean Platelet Volume 9.1 fL (9.4-12.4); Monocytes # 0.7 K/mcL (0.0-1.3); Monocytes % 8.6 %; Neutrophils # 3.9 K/mcL (1.6-8.9); Platelet Count 218 K/mcL (140-400); Red Blood Count 5.21 M/mcL (4.19-5.50); Red Cell Distribution Width 12.5 % (11.5-14.5); Segmented Neutrophils % 45.1 %; White Blood Count 8.6 K/mcL (4.3-11.1)
[2019-07-07] MEDS ORDERED: *HR* Promethazine 25 MG/ML VIAL IVP ONE (21:25)
[2019-07-07 21:39] LABS: BUN/Creatinine Ratio 12 (6-26); Blood Urea Nitrogen 16 mg/dL (6-20); Calcium 9.6 mg/dL (8.6-10.3); Carbon Dioxide 28 mEq/L (23-29); Chloride 102 mEq/L (98-107); Glucose 124 mg/dL (70-105); Osmolality,Calculated 293 (280-300); Potassium 3.6 mEq/L (3.5-5.1); Sodium 140 mEq/L (136-145); Troponin I < 0.03 ng/mL (< 0.04); eGFR For African Americans > 60 (> 60); eGFR For Non-African Americans 58 (> 60)
[2019-07-08] MEDS ORDERED: Naloxone 0.4 MG/ML INJ IVP PRN (06:21)
--- NOTE | 2019-07-08 06:30 | Internal Med History&Physical ---
Date of Encounter: 07/08/19 Time of Encounter: 06:16 Internal Medicine - H&P: HPI Chief complaint: Chest pain Admitted From: Emergency Dept Plans for Post Hospital Care: Home History of present illness: Mr. Littlejohn is a 54 year old male Patient presented to emergency department with chest pain that occurred just after taking a nap. He says he was lying down when he woke up he had central chest pain with radiation to his left arm and jaw. He thought maybe it was an anxiety attack, so he took one of his Klonopin medications. This did not help his pain. He has had similar events like this in the past, but usually resolves on its own. Because the pain was not improving on its own, he decided to come to the emergency department for further evaluation. His drove him to the ER. In emergency department patient's initial vital signs demonstrated an elevated blood pressure of 172/121, otherwise within normal limits. CBC unremarkable BMP unremarkable, slightly elevated glucose of 124. Initial troponin undetectable Chest x-ray was negative EKG: Sinus rhythm, rate 84, no ischemic changes compared to previous. In the emergency department patient received a 324 mg dose of aspirin, and 1 mg of Ativan. He also received 12.5 mg of Phenergan. He is admitted to the hospital for further management. Upon my evaluation, patient is resting comfortably in hospital bed in no acute distress. He denies chest pain, as it resolved upon arrival to the ER. He denies abdominal pain, diarrhea and constipation. He had some nausea but this had resolved after the Phenergan given in the emergency department. He has a family history of heart disease, stating that his father had a fatal heart attack at 45,, and his mother also had heart disease. Both of his parents smoked however, and the patient does not smoke, drink or do other drugs. He is prediabetic but does not take any medicines for his diabetes. He does have a history of hypertension and takes lisinopril/hydrochlorothiazide. He is a full code. Past Med Surg Social Fam HX - Past Medical History Medical history: arthritis, diabetes, GERD, hyperlipidemia, hypertension, migraine, thyroid disease, other Additional medical history: depression with anxiety. low back pain. hypogonadism Psychiatric history: anxiety, depression - Past Surgical History Surgical History: other Additional surgical history: R knee growth removed. colonoscopy - Social History Smoking Status: Never smoker Smokeless Tobacco Status: No Alcohol use: rarely Drug use: none - Family History Father Adopted: No Living Status: Hx Family Cardiac Disorders: Yes (Heart Attack) Hx Family Respiratory Disorders: Yes (COPD) Hx Family Cancer: Yes (Bladder) Internal Medicine - H&P: Meds Levothyroxine Sodium 125 mcg PO DAILY 12/25/18 [History] Lisinopril/Hydrochlorothiazide [Zestoretic 10-12.5 mg Tablet] 1 tab PO DAILY 12/25/18 [History] Pantoprazole Sodium 40 mg PO BID 12/25/18 [History] clonazePAM [Clonazepam] 1 mg PO BID PRN 12/25/18 [History] Buspirone HCl 150 mg PO DAILY 07/08/19 [History] Allergy/AdvReac Type Severity Reaction Status Date / Time oxytetracycline Allergy Swelling Verified 12/25/18 10:34 [From Terramycin] of Lip/Tongue/Throat escitalopram [From Lexapro] AdvReac Palpitation Verified 12/25/18 10:34 s hydrocodone [From Vicodin] AdvReac Gastrointestinal Verified 12/25/18 10:34 Upset All Systems PM: A 10-system review of systems was performed and is negative for pertinent findings except as documented above in the HPI. - Constitutional Vitals: Temp Pulse Resp BP Pulse Ox 97.9 F 77 16 100/69 93 07/08/19 03:57 07/08/19 03:57 07/08/19 03:57 07/08/19 03:57 07/08/19 03:57 General appearance: Present: cooperative, A&O X 3, pleasant, no acute distress, answers questions appropriately Exam: - - Head Head exam: Present: normal inspection - Eye Eye exam: Present: EOMI, normal appearance - Neck Neck exam general surgery: Present: full ROM, supple. Absent: tenderness - Respiratory Respiratory exam: Present: CTAB. Absent: rales, respiratory distress, rhonchi, wheezes - Cardiovascular Cardiovascular exam: Present: RRR. Absent: diastolic murmur, systolic murmur - GI/Abdominal GI/Abdominal exam: Present: normal bowel sounds, soft. Absent: tenderness - Extremities Exam Extremities exam: Present: warm, radial pulses palpable and symmetrical. Absent: calf tenderness, pedal edema, tenderness - Neurological Exam Neurological exam: Present: no focal deficits, strengths equal and symetr throughout. Absent: motor sensory deficit, facial droop, speech deficit - Skin Skin exam: Present: dry, normal color, warm Internal Med - H&P Results - Labs CBC & Chem 7: 07/07/19 20:54 07/07/19 20:54 Labs: Short CBC 07/07/19 Range/Units 20:54 WBC 8.6 (4.3-11.1) K/mcL Hgb 15.7 (12.9-16.9) g/dL Hct 47.4 (37.5-50.1) % Plt Count 218 (140-400) K/mcL Neutrophils # 3.9 (1.6-8.9) K/mcL BMP 07/07/19 20:54 Sodium 140 Potassium 3.6 Chloride 102 Carbon Dioxide 28 BUN 16 Creatinine 1.29 Glucose 124 H Calcium 9.6 Cardiac Enzymes 07/07/19 Range/Units 20:54 Troponin I < 0.03 (< 0.04) ng/mL - Impressions ITS Impressions Chest X-Ray 07/07/19 20:55 IMPRESSION: Negative portable study. D/ / Cely Shelby Cha, MD / Cely Shelby Cha, MD Interpreting Provider: Cely Shelby Cha, MD - Assessment and Plan (1) Chest pain Current Visit: Yes Status: Acute Assessment and plan: Chest pain now resolved. Patient had previous stress test and echocardiogram performed in 2017. Echocardiogram showed left ventricular ejection fraction of 60% with mild left ventricular diastolic dysfunction. Is also possible PFO on Doppler evaluation. Continue to trend troponin Cardiac telemetry Echocardiogram in the morning Consider stress test Qualifiers: Chest pain type: unspecified Qualified Code(s): R07.9 - Chest pain, unspecified (2) Hypertension Current Visit: No Status: Chronic Assessment and plan: Patient has history of hypertension, takes combo lisinopril/hydrochlorothiazide pill at home. Patient initially had blood pressures elevated in the ER, but these improved with no intervention. Continue to monitor Continue home meds Qualifiers: Hypertension type: essential hypertension Qualified Code(s): I10 - Essential (primary) hypertension (3) Anxiety disorder, unspecified Current Visit: No Status: Chronic Assessment and plan: Continue home meds Qualifiers: Anxiety disorder type: unspecified anxiety disorder Qualified Code(s): F41.9 - Anxiety disorder, unspecified (4) DVT prophylaxis Current Visit: No Status: Acute Assessment and plan: Subcutaneous heparin - Time Spent With Patient Total time spent is greater than 50% in coordination of care (as documented) at patient's floor/unit and/or counseling patient:
[2019-07-08] MEDS ORDERED: Dextrose Gel 15 GM/37.5 ML TUBE PO PRN ×2 (06:31)
[2019-07-08] MEDS ORDERED: *HR* Dextrose 50 % in Water (Syg) 50 ML SYRINGE IVP PRN (06:31)
[2019-07-08] MEDS ORDERED: D5% in Water 1,000 ML IVC PRN (06:31)
[2019-07-08 06:55] LABS: Hematocrit 44.3 % (37.5-50.1); Hemoglobin 14.9 g/dL (12.9-16.9); Mean Corpuscular HGB Conc 33.6 g/dL (31.6-35.5); Mean Corpuscular Hemoglobin 30.2 pg (28.0-33.3); Mean Corpuscular Volume 89.7 fL (83.0-100.0); Mean Platelet Volume 8.9 fL (9.4-12.4); Platelet Count 194 K/mcL (140-400); Red Blood Count 4.94 M/mcL (4.19-5.50); Red Cell Distribution Width 12.5 % (11.5-14.5); White Blood Count 5.8 K/mcL (4.3-11.1)
[2019-07-08 07:16] LABS: BUN/Creatinine Ratio 13 (6-26); Blood Urea Nitrogen 16 mg/dL (6-20); Calcium 9.2 mg/dL (8.6-10.3); Carbon Dioxide 29 mEq/L (23-29); Chloride 104 mEq/L (98-107); Glucose 139 mg/dL (70-105); Osmolality,Calculated 293 (280-300); Potassium 3.4 mEq/L (3.5-5.1); Sodium 140 mEq/L (136-145); eGFR For African Americans > 60 (> 60); eGFR For Non-African Americans > 60 (> 60)
[2019-07-08] MEDS ORDERED: Insulin LISPRO 300 UNITS/3 ML VIAL SQ SCH (12:00)
--- NOTE | 2019-07-08 14:36 | Cardiology Consult Note ---
Date of Encounter: 07/08/19 Time of Encounter: 14:33 Assessment and Plan (1) Chest pain Current Visit: Yes Status: Acute Per cardiology: -Chest pain somewhat atypical with some typical features, may be BP related. -Troponins negative x2. -ECG with no acute ischemic changes. -TTE with LVEF preserved, no SWMA. -Exercise stress test without evidence of ischemia or infarct. Excellent exercise capacity. -Risk factors for CAD: HTN, HLD, DM, Family history (father [place] 45). -Discussed medical management with patient, however patient is considering [facility]. Patient would like to further discuss with . -Will start ASA, statin, BB. Qualifiers: Chest pain type: unspecified Qualified Code(s): R07.9 - Chest pain, unspecified (2) Hypertension Current Visit: No Status: Chronic Per cardiology: -Known HTN. -BP uncontrolled on admission. -Will add BB. -Continue to monitor BP. Qualifiers: Hypertension type: essential hypertension Qualified Code(s): I10 - Essen tial (primary) hypertension Discussion w patient/family: The assessment and plan as outlined above was discussed with the patient who expressed understanding and agreement. All questions were answered. Thank you for involving us in the care of your patient. Please call with any questions. Discussed and reviewed with . History of Present Illness Consult date: 07/08/19 Requesting physician: Swapnil Lind Consult reason: chest pain Chief complaint: chest pain History of present illness: Mr. Littlejohn is a 54 year old male with a relevant past medical history of HTN, HLD, DM, hypothyroidism, GERD, depression, anxiety, Family history of CAD, who presented to [facility] with complaints of chest pain. Patient states he has had intermittent chest pain off and on for 3 weeks. Patient states pain comes and goes. Does not always correlate to exertion. States one episode while he was riding his mountain bike. However, states he walks with his 3 miles without chest pain. Patient states yesterday, chest pain started while he was laying down. States he took his BP and BP was noted to be 160/100. Patient states he took an extra BP medication and BP did not improve so he decided to present to ER. Patient states chest pain was left sided and radiated into left arm and jaw. Patient reports current symptoms improved. Patient denies shortness of breath. Denies increased fatigue. Past Med Surg Social Fam HX - Past Medical History Attestation: Yes The following information was validated with the patient. Source: patient, old records reviewed Medical history: arthritis, diabetes, GERD, hyperlipidemia, hypertension, migraine, thyroid disease, other Additional medical history: depression with anxiety. low back pain. hypogonadism Psychiatric history: anxiety, depression - Past Surgical History Surgical History: other Additional surgical history: R knee growth removed. colonoscopy - Social History Smoking Status: Never smoker Smokeless Tobacco Status: No Alcohol use: rarely Drug use: none - Family History Father Adopted: No Living Status: Hx Family Cardiac Disorders: Yes (Heart Attack) Hx Family Respiratory Disorders: Yes (COPD) Hx Family Cancer: Yes (Bladder) Medications and Allergies Lisinopril/Hydrochlorothiazide [Zestoretic 10-12.5 mg Tablet] 1 tab PO DAILY 12/25/18 [History] Pantoprazole Sodium 40 mg PO BID 12/25/18 [History] clonazePAM [Clonazepam] 1 mg PO BID PRN 12/25/18 [History] BuPROPion SR (12 HR) [Wellbutrin SR] 150 mg PO DAILY 07/08/19 [History] Cholestyramine/Aspartame [Cholestyramine Light Packet] 4 gm PO BID PRN 07/08/19 [History] Fluticasone Propionate Nasal [Flonase] 50 mcg NS DAILY PRN 07/08/19 [History] Levothyroxine [Synthroid] 112 mcg PO QAM 07/08/19 [History] Metoclopramide HCl 5 mg PO TID PRN 07/08/19 [History] Allergy/AdvReac Type Severity Reaction Status Date / Time oxytetracycline Allergy Swelling Verified 07/08/19 12:26 [From Terramycin] of Lip/Tongue/Throat escitalopram [From Lexapro] AdvReac Palpitation Verified 07/08/19 12:26 s hydrocodone [From Vicodin] AdvReac Gastrointestinal Verified 07/08/19 12:26 Upset All Systems Review: The remainder of the systems were reviewed and are negative - Cardiovascular Cardiovascular: as per HPI, chest pain at rest, chest pain with exertion, radiating jaw, neck or arm pain Physical Examination Vital Signs Temperature 97.9 F 07/07/19 20:48 Pulse Rate 82 07/07/19 20:48 Respiratory Rate 20 07/07/19 20:48 Blood Pressure 172/121 07/07/19 20:48 O2 Sat by Pulse Oximetry 99 07/07/19 20:48 Temperature 98.3 F 07/08/19 07:50 Pulse Rate 71 07/08/19 07:50 Respiratory Rate 16 07/08/19 07:50 Blood Pressure 128/72 07/08/19 07:50 O2 Sat by Pulse Oximetry 94 07/08/19 07:50 Oxygen Delivery Oxygen Delivery Room Air General: Conversant, No Apparent Distress HEENT: Atraumatic, Normocephaly, Mucus Membranes Moist Neck: No JVD, Normal carotid pulses Cardiac: Reg Rate and Rhythm, Normal S1 and S2, No Murmur Lungs: Normal Breath Sounds, No Wheeze, Rales, Rhonchi Neuro: Alert and responsive, No focal deficits noted Abdomen: Soft, Non-Tender Skin: No rashes noted on visualized skin Musculoskeletal: No Chest Wall Tenderness Extremities: No Clubbing, No Cyanosis, No Edema, Normal Pulses Results 07/08/19 06:37 07/08/19 06:37 Lab Results Impressions Chest X-Ray 07/07/19 20:55 IMPRESSION: Negative portable study. D/ / Cely Shelby Cha, MD / Cely Shelby Cha, MD Interpreting Provider: Cely Shelby Cha, MD Echocardiogram 07/08/19 06:24 Impressions: LVEF 60%. Mild left ventricular diastolic dysfunction. Normal right ventricular structure and function. Mild tricuspid regurgitation. No pulmonary hypertension. Left Ventricular Wall Motion: Rest Echo Findings All wall segments showed normal motion. Findings: Study Quality * Technically adequate exam. ECG Findings * Normal sinus rhythm. Left Ventricle * LVEF 60%. * Normal LV chamber size, wall thickness and systolic function. * Mild left ventricular diastolic dysfunction. Right Ventricle * Normal right ventricular structure and function. Left Atrium * Normal left atrial size. Right Atrium * Normal right atrial size. Interatrial Septum * Interatrial septum not well evaluated. * No evidence of PFO by color Doppler. Aortic Valve * Trileaflet aortic valve with normal function. * No aortic stenosis. * No aortic regurgitation. Mitral Valve * Normal mitral valve structure and function. * No mitral stenosis. * Trace mitral regurgitation. Tricuspid Valve * Normal tricuspid valve structure. * No tricuspid stenosis. * Mild tricuspid regurgitation. * Estimated RVSP is 22 mmHg. * Estimated RA pressure is 3 mmHg. * No pulmonary hypertension. Pulmonic Valve * Pulmonic valve is not well visualized. * No pulmonic stenosis. * No pulmonic regurgitation. Aorta * Normally sized aortic root. Pericardium * The pericardium appears normal. IVC * The IVC is not dilated. * > 50% respiratory change Active Medications Dextrose/Water (Dextrose 50% (Syg)) 25 ml IVP AD PRN PRN Reason: Hypoglycemia Stop: 01/07/20 06:32 Glucagon (Glucagen) 1 mg IM ONCE PRN PRN Reason: Hypoglycemia Stop: 01/07/20 06:32 Glucose (Gluctose) 15 gm PO ONCE PRN PRN Reason: Hypoglycemia Stop: 01/07/20 06:32 Glucose (Gluctose) 30 gm PO ONCE PRN PRN Reason: Hypoglycemia Stop: 01/07/20 06:32 Heparin Sodium (Porcine) (Heparin) 5,000 unit SQ Q12HCO [facility]; Protocol Stop: 01/07/20 18:01 Dextrose (Dextrose 5%) 1,000 mls @ 100 mls/hr IVC .Q10H PRN PRN Reason: HYPOGLYCEMIA Stop: 01/07/20 06:32 Insulin Human Lispro (Humalog) 0 units SQ Q6HR [facility]; Protocol Stop: 01/07/20 12:01 Naloxone HCl (Narcan) 0.4 mg IVP Q2MPRN PRN PRN Reason: SEE COMMENTS Stop: 01/07/20 06:22 Laboratory Tests 07/07/19 07/08/19 07/08/19 20:54 06:37 06:37 Hgb 14.9 Creatinine 1.22 Troponin I < 0.03 07/08/19 06:37 Hgb Creatinine Troponin I < 0.03 - Imaging and Cardiology Chest Xray: report reviewed Stress Test: report reviewed Echo: report reviewed - EKG Interpretation EKG results cardiology: personally reviewed (ECG with SR, HR 83.), other (Telemetry reviewed with average HR previous 12 hours noted to be 78, SR. PACs, short run of atrial tachycardia noted.) Consult Discharge Plan - Plan Referrals: Keshawn Vance MD [Primary Care Provider] -
[2019-07-08] MEDS ORDERED: Aspirin Enteric Coated 81 MG Tablet PO SCH (14:53)
--- NOTE | 2019-07-08 15:40 | Event Note ---
Date of Encounter: 07/08/19 Time of Encounter: 15:40 - Cardiology Event Note Discussed and reviewed with Dr. Lechuga, plans for coordination of outpatient cardiac CTA. Cardiology signing off, reconsult as needed, follow-up arranged.
--- NOTE | 2019-07-08 15:58 | Discharge Summary ---
- NOTES TO OUTPATIENT PROVIDER Notes to Outpatient Provider: Follow up with PCP in one week. Follow-up with cardiology as scheduled. New Medications: Aspirin 81mg PO Daily. Coreg 3.125 mg PO BID.. Lipitor 40mg HS. Date of Encounter: 07/08/19 Time of Encounter: 15:53 - Discharge Diagnosis (1) Chest pain Priority: Primary Status: Acute Qualifiers: Chest pain type: unspecified Qualified Code(s): R07.9 - Chest pain, unspecified (2) Hypertension Priority: Secondary Status: Chronic Qualifiers: Hypertension type: essential hypertension Qualified Code(s): I10 - Essential (primary) hypertension (3) Anxiety disorder, unspecified Priority: Secondary Status: Chronic Qualifiers: Anxiety disorder type: unspecified anxiety disorder Qualified Code(s): F41.9 - Anxiety disorder, unspecified (4) DVT prophylaxis Priority: Secondary Status: Acute Hospital course: Mr. Littlejohn is a 54 year old male with a known past medical history of hypertension, hyperlipidemia, GERD, hypothyroidism and anxiety patient presented to ER with intermittent chest pain located sub sternal he and left chest wall radiated to his left arm associated with some nausea from last one month. Was admitted in the hospital and placed him on manager monitoring. His serial troponin came back as negative. His EKG did not show any acute ischemic changes. Since he is high risk for ACS he did go for nuclear stress test which c bert back as negative. However since he did have typical angina equivalent chest pain, he was you monitor by cardiology who recommended to start him on ASA, Coreg and Lipitor. Cardiology is planning on doing out pt CTA of Heart. So will d/c him home in stable condition today. - Time Spent with Patient Total time spent providing and/or coordinating discharge services: - Discharge Medications Prescriptions: New Aspirin Enteric Coated [Aspirin EC] 81 mg PO DAILY #30 tablet. Carvedilol [Coreg] 3.125 mg PO BIDWM #30 tablet Atorvastatin [Lipitor] 40 mg PO HS #30 tablet Continued Pantoprazole Sodium 40 mg PO BID Lisinopril/Hydrochlorothiazide [Zestoretic 10-12.5 mg Tablet] 1 tab PO DAILY clonazePAM [Clonazepam] 1 mg PO BID PRN PRN Reason: Anxiety BuPROPion SR (12 HR) [Wellbutrin SR] 150 mg PO DAILY Cholestyramine/Aspartame [Cholestyramine Light Packet] 4 gm PO BID PRN PRN Reason: Itching Fluticasone Propionate Nasal [Flonase] 50 mcg NS DAILY PRN PRN Reason: Allergy Symptoms Levothyroxine [Synthroid] 112 mcg PO QAM Metoclopramide HCl 5 mg PO TID PRN PRN Reason: GERD Home Medications: Lisinopril/Hydrochlorothiazide [Zestoretic 10-12.5 mg Tablet] 1 tab PO DAILY 12/25/18 [History] Pantoprazole Sodium 40 mg PO BID 12/25/18 [History] clonazePAM [Clonazepam] 1 mg PO BID PRN 12/25/18 [History] Aspirin Enteric Coated [Aspirin EC] 81 mg PO DAILY #30 tablet. 07/08/19 [Rx] Atorvastatin [Lipitor] 40 mg PO HS #30 tablet 07/08/19 [Rx] BuPROPion SR (12 HR) [Wellbutrin SR] 150 mg PO DAILY 07/08/19 [History] Carvedilol [Coreg] 3.125 mg PO BIDWM #30 tablet 07/08/19 [Rx] Cholestyramine/Aspartame [Cholestyramine Light Packet] 4 gm PO BID PRN 07/08/19 [History] Fluticasone Propionate Nasal [Flonase] 50 mcg NS DAILY PRN 07/08/19 [History] Levothyroxine [Synthroid] 112 mcg PO QAM 07/08/19 [History] Metoclopramide HCl 5 mg PO TID PRN 07/08/19 [History] Allergies/Adverse Reactions: Allergy/AdvReac Type Severity Reaction Status Date / Time oxytetracycline Allergy Swelling Verified 07/08/19 12:26 [From Terramycin] of Lip/Tongue/Throat escitalopram [From Lexapro] AdvReac Palpitation Verified 07/08/19 12:26 s hydrocodone [From Vicodin] AdvReac Gastrointestinal Verified 07/08/19 12:26 Upset Date of admission: 07/07/19 22:46 Primary care physician: Keshawn Vance MD Consults: 07/08/19 14:03 Consult to Cardiology [CONS] Routine Comment: Consulting Provider: [facility] [place] Reason for Consult: Angina chest pain Time Notified: 14:03 Call Completed: Yes - Constitutional Vitals: Temp Pulse Resp BP Pulse Ox 98.3 F 71 16 128/72 94 07/08/19 07:50 07/08/19 07:50 07/08/19 07:50 07/08/19 07:50 07/08/19 07:50 General appearance: Present: cooperative, A&O X 3, pleasant, no acute distress, answers questions appropriately Exam: Gen: Alert, awake, Oriented to time,place and person Chest: Diminished breath sounds B/L, No wheezing, No crackles, No rales Heart: S1S2+ RRR No murmurs Abd: Soft, NT, BS +, No organomegaly Ext: No edema, pulses are palpable, No calf tenderness Neuro : No acute focal neuro deficits noticed Skin: No rash. - Patient Status Disposition: Home, Self-Care Condition: Good Overall status at discharge: patient is back to baseline - Discharge Instructions Follow Up With: Keshawn Vance MD [Primary Care Provider] - David Vergara CNP [Advanced Practice Nurse] - Forms: ED Satisfaction Letter - Diet and Activity Activity: increase activity as tolerated Diet: low salt diet
[2019-07-08 16:05] VITALS: BP 105/83
--- NOTE | 2019-07-08 16:10 | Electrocardiograph Report ---
[place] [id number] Test Date: 2019-07-07 Pat Name: Cheko Littlejohn Department: [id number] Room: 3B48 Gender: M Admissions Nurse: : [id number] Requested By: Germaine See Order Number: [id number] Reading MD: Go Lechuga Measurements Intervals [place] Rate: 83 P: 24 OR: 141 QRS: 15 QRSD: 95 T: 52 QT: 364 QTc: 428 Interpretive Statements Sinus rhythm Abnormal R-wave progression, early transition Electronically Signed On 07-08-2019 16:08:31 EDT by Go Lechuga
[2019-07-08] MEDS ORDERED: *HR* Heparin 5,000 UNIT/ML VIAL SQ SCH (18:00)
== END 2019-07-08 16:40 | disposition home or self-care (01) ==
LOC: EMEROOARM 20:43 → 3BNU 20:43 → SUATTDRO 22:46 → 3BNU 23:25
PROVIDERS: ADMIT Family Medicine; ATTEND Family Medicine

== ENCOUNTER 2021-04-05 16:20 | Observation (INO) ==
[2021-04-05] MEDS ORDERED: Nitroglycerin 0.4 MG TAB.SUBL SL PRN (17:12)
[2021-04-05] MEDS ORDERED: Aspirin 81 MG TAB.CHEW PO STA ×2 (17:13→17:19)
[2021-04-05 17:25] LABS: Basophils % 0.5 %; Eosinophils # 0.1 K/mcL (0.0-0.6); Eosinophils % 1.4 %; Hematocrit 43.7 % (37.5-50.1); Hemoglobin 14.6 g/dL (12.9-16.9); Immature Granulocytes % 0.2 % (0-4); Lymphocytes # 2.2 K/mcL (0.6-4.6); Lymphocytes % 25.4 %; Mean Corpuscular HGB Conc 33.4 g/dL (31.6-35.5); Mean Corpuscular Hemoglobin 30.7 pg (28.0-33.3); Mean Corpuscular Volume 91.8 fL (83.0-100.0); Mean Platelet Volume 8.9 fL (9.4-12.4); Monocytes # 0.5 K/mcL (0.0-1.3); Monocytes % 6.1 %; Neutrophils # 5.8 K/mcL (1.6-8.9); Platelet Count 183 K/mcL (140-400); Red Blood Count 4.76 M/mcL (4.19-5.50); Segmented Neutrophils % 66.4 %; White Blood Count 8.7 K/mcL (4.3-11.1)
[2021-04-05 17:37] LABS: Alanine Aminotransferase 13 Units/L (7-52); Albumin 4.4 g/dL (3.5-5.7); Albumin/Globulin Ratio 1.7 (1.1-2.2); Alkaline Phosphatase 57 Units/L (34-104); Aspartate Amino Transferase 15 Units/L (13-39); BUN/Creatinine Ratio 14 (6-26); Bilirubin,Total 0.5 mg/dL (0.3-1.0); Blood Urea Nitrogen 17 mg/dL (6-20); Calcium 9.5 mg/dL (8.6-10.3); Carbon Dioxide 26 mEq/L (23-29); Chloride 105 mEq/L (98-107); Globulin 2.6 g/dL (2.4-3.5); Glucose 121 mg/dL (70-105); Osmolality,Calculated 293 (280-300); Potassium 3.4 mEq/L (3.5-5.1); Sodium 140 mEq/L (136-145); Troponin I < 0.03 ng/mL (< 0.04); eGFR For African Americans > 60 (> 60); eGFR For Non-African Americans > 60 (> 60)
[2021-04-05] MEDS ORDERED: Perflutren Lipid Microsphere 1.3 ML in 0.9 % Sodium Chloride 8.7 ML IVP PRN (20:31)
[2021-04-05] MEDS ORDERED: Ondansetron 4 MG/2 ML VIAL IVP PRN (20:31)
[2021-04-05] MEDS ORDERED: Morphine Sulfate 2 MG/ML SYRINGE IVP PRN (20:31)
[2021-04-06 03:53] LABS: Amphetamine Screen,Urine Negative ng/mL (Cutoff=1000); Barbiturate Screen,Urine Negative ng/mL (Cutoff=200); Benzodiazepines Screen,Urine Negative ng/mL (Cutoff=200); Cannabinoid Screen,Urine Negative ng/mL (Cutoff = 50); Cocaine Screen,Urine Negative ng/mL (Cutoff= 300); Opiate Screen,Urine Negative ng/mL (Cutoff=300); Phencyclidine Screen,Urine Negative ng/mL (Cutoff=25)
[2021-04-06] MEDS ORDERED: Regadenoson 0.4 MG/5 ML SYRINGE IVP ONE (05:55)
[2021-04-06 06:06] LABS: Basophils % 0.5 %; Eosinophils # 0.2 K/mcL (0.0-0.6); Hematocrit 42.8 % (37.5-50.1); Hemoglobin 14.1 g/dL (12.9-16.9); Immature Granulocytes % 0.2 % (0-4); Lymphocytes # 2.3 K/mcL (0.6-4.6); Lymphocytes % 37.2 %; Mean Corpuscular HGB Conc 32.9 g/dL (31.6-35.5); Mean Corpuscular Hemoglobin 30.5 pg (28.0-33.3); Mean Corpuscular Volume 92.4 fL (83.0-100.0); Mean Platelet Volume 9.2 fL (9.4-12.4); Monocytes # 0.5 K/mcL (0.0-1.3); Monocytes % 8.4 %; Neutrophils # 3.2 K/mcL (1.6-8.9); Platelet Count 178 K/mcL (140-400); Red Blood Count 4.63 M/mcL (4.19-5.50); Red Cell Distribution Width 12.4 % (11.5-14.5); Segmented Neutrophils % 50.7 %; White Blood Count 6.3 K/mcL (4.3-11.1)
[2021-04-06 06:09] LABS: INR 1.1; Prothrombin Time 12.6 Seconds (9.4-12.1)
[2021-04-06] MEDS: *HR* Heparin 5,000 UNIT/ML VIAL SQ SCH ×2 (06:13→17:11)
[2021-04-06 06:27] LABS: Alanine Aminotransferase 12 Units/L (7-52); Albumin/Globulin Ratio 1.8 (1.1-2.2); Alkaline Phosphatase 52 Units/L (34-104); Aspartate Amino Transferase 13 Units/L (13-39); BUN/Creatinine Ratio 15 (6-26); Bilirubin,Total 0.5 mg/dL (0.3-1.0); Blood Urea Nitrogen 19 mg/dL (6-20); Calcium 9.2 mg/dL (8.6-10.3); Carbon Dioxide 29 mEq/L (23-29); Chloride 107 mEq/L (98-107); Globulin 2.2 g/dL (2.4-3.5); Glucose 103 mg/dL (70-105); Magnesium 2.2 mg/dL (1.6-2.6); Osmolality,Calculated 299 (280-300); Potassium 3.5 mEq/L (3.5-5.1); Sodium 143 mEq/L (136-145); Total Protein 6.2 g/dL (6.4-8.9); eGFR For African Americans > 60 (> 60); eGFR For Non-African Americans > 60 (> 60)
[2021-04-06] MEDS ORDERED: Aspirin 81 MG TAB.CHEW PO SCH (09:00)
[2021-04-06] MEDS ORDERED: *HR* LORazepam 1 MG TABLET PO PRN (11:50)
[2021-04-06] MEDS ORDERED: Isosorbide MONOnitrate (24 HR) 30 MG TAB.ER.24H PO SCH (12:00)
[2021-04-06] MEDS: Gabapentin 100 MG CAPSULE PO SCH ×2 (13:07→21:06)
[2021-04-06] MEDS ORDERED: Acetaminophen 325 MG TABLET PO PRN (16:49)
[2021-04-06] MEDS ORDERED: carvediloL 6.25 MG TABLET PO SCH (17:00)
[2021-04-07 05:27] LABS: Estimated Average Glucose 117 mg/dl; Hemoglobin A1C 5.7 %
[2021-04-07] MEDS: *HR* Heparin 5,000 UNIT/ML VIAL SQ SCH (05:28)
[2021-04-07 07:09] VITALS: BP 110/66
[2021-04-07] MEDS ORDERED: BuPROPion SR (12 HR) 150 MG TABLET PO SCH (09:00)
== END 2021-04-07 09:15 | disposition home or self-care (01) ==
LOC: EMEROOARM 16:20 → 3BNU 16:20 → SUATTDRO 18:43 → 3BNU 20:24
PROVIDERS: ADMIT Internal Medicine; ATTEND Registered Nurse